=== PATIENT | female | born 1940 | race Caucasian/White ===

== ENCOUNTER 2017-11-13 16:03 | Inpatient (IN) | payer MEDICARE ==
[2017-11-13] MEDS ORDERED: ONDANSETRON HCL/PF 4 MG/2 ML VIAL ONE (16:25)
[2017-11-13] MEDS ORDERED: LORAZEPAM INJ 2 MG/ML VIAL ONE (16:26)
[2017-11-13] MEDS ORDERED: LORAZEPAM INJ 2 MG/ML VIAL IV ONE (16:30)
[2017-11-13] MEDS ORDERED: IV NS 0.9% 1,000 ML BAG IV ONE (16:30)
[2017-11-13] MEDS ORDERED: ONDANSETRON HCL/PF 4 MG/2 ML VIAL IVP ONE (16:30)
[2017-11-13] MEDS ORDERED: IV NS 0.9% 1,000 ML IV ONE (19:30)
[2017-11-13] MEDS ORDERED: LORAZEPAM 0.5 MG TABLET PO PRN (23:00)
[2017-11-13] MEDS ORDERED: MAGNESIUM HYDROXIDE 30 ML UDC PO PRN (23:00)
[2017-11-13] MEDS ORDERED: ONDANSETRON HCL/PF 4 MG/2 ML VIAL IVP PRN (23:00)
[2017-11-13] MEDS ORDERED: HYDROCODONE/APAP 5/325MG 1 EACH TABLET PO PRN (23:00)
[2017-11-13] MEDS ORDERED: ACETAMINOPHEN 325 MG TABLET PO PRN (23:00)
[2017-11-13] MEDS ORDERED: Z GUARD REMEDY 2 OZ OINT TP PRN (23:00)
[2017-11-13] MEDS ORDERED: MAG HYDROX/AL HYDROX/SIMETH 30 ML UDC PO PRN (23:00)
[2017-11-14] MEDS ORDERED: BUSP10TA3 PO (07:05)
[2017-11-14] MEDS ORDERED: POTASSIUM CHLORIDE 20 MEQ TAB.PRT.SR PO ONE (10:30)
[2017-11-14] MEDS ORDERED: IV NS 0.9% 1,000 ML IV PRN (11:00)
[2017-11-14] MEDS ORDERED: ALPRAZOLAM 0.25 MG TABLET PO SCH (11:00)
[2017-11-14] MEDS ORDERED: ATORVASTATIN 10 MG TABLET PO SCH (22:00)
== END 2017-11-14 20:30 | disposition home or self-care (01) | DRG 880 ==
DX: F41.9 Anxiety disorder, unspecified (principal); I67.4 Hypertensive encephalopathy; D69.6 Thrombocytopenia, unspecified; E86.0 Dehydration; D64.9 Anemia, unspecified; Z98.890 Other specified postprocedural states; Z80.9 Family history of malignant neoplasm, unspecified; I10 Essential (primary) hypertension; E78.5 Hyperlipidemia, unspecified; F43.9 Reaction to severe stress, unspecified